=== PATIENT | male | born 1985 | race Caucasian/White ===

== ENCOUNTER → 2021-07-29 | Outpatient (CLI) | payer OTHER ==
[~2021-07-29] MED LIST: GADOTERATE 7.5 MMOL/15ML VIAL. IVP ONE; SERT25TA PO
--- NOTE | 2021-07-29 11:41 | KCIC ---
EXAM: Brain MRI with and without contrast. HISTORY: Eccordosis physaliphora. TECHNIQUE: Multiplanar, multisequence magnetic resonance imaging of the brain was performed prior to and following the administration of intravenous contrast. COMPARISON: None. FINDINGS: There is no restricted diffusion to suggest acute or subacute infarction. There is no susce ptibility effect to suggest hemorrhage. There is no mass effect or midline shift. There is no hydroce phalus. There is no suspicious white matter lesion. The orbits are unremarkable. There is mild ethmoid sinus mucosal thickening. The mastoid air cells ar e clear. There are normal flow voids within the cerebral vessels. There is a T2 hyperintense 3 mm def ect within the cortex of the posterior clivus right of midline which abuts the posterior wall of the sphenoid sinus. No associated mass lesion is seen. There is no suspicious enhancing lesion. IMPRESSION: 1. No acute intracranial finding. 2. 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 There is no prior study for comparison at the time of dictation. An addendum to this report can be submitted if a prior study becomes available. Electronically signed by: Mary Ann Reyes MD (07/29/2021 11:39 AM) [id number]
== END ==
LOC: KCIC MRI 08:12
PROVIDERS: ATTEND Nurse Practitioner Family
DX: D33.2 Benign neoplasm of brain, unspecified (principal)
CPT/HCPCS: 70553; A9575